=== PATIENT | female | born 1980 | race Caucasian/White ===

== ENCOUNTER 2017-01-24 07:41 | Inpatient (IN) | payer SELFPAY ==
[~2017-01-24] VITALS: Ht 165.1 cm; Wt 64.0 kg
[2017-01-24] VITALS (45 sets, daily range): BP systolic 61–132; BP diastolic 32–83; PULSE 57–93; RESP 16–18; TEMP 98.2–98.4; O2SAT 99
--- NOTE | 2017-01-24 08:30 | PD ---
HPI Chief Complaint: Related Problem Time Seen by Provider: 07:55 Travel History International Travel<30 days: No Contact w/Intl Traveler<30days: No Traveled to known affect area: No History of Present Illness HPI 36 y/o female at 15 weeks with last ultrasound 3 weeks ago at 12 weeks in the office with heart tones noted then. Kalpana Weaver is the mid-level that they work with. She does not know the physician in the office. She states her blood type is O+. She states her to prior pregnancies were healthy home births. She states that at 2 AM this morning she felt a gush of water and started having lower abdominal cramping and bleeding. She was sent to OB ED and they sent her here given she is 15 weeks . She denies any other concurrent complaints. PFSH Past Medical History Influenza Vaccination: No ?: LMP: 10/15/16 : 3 Para: 2 Social History Alcohol Use: No Tobacco Use: No Substance Use: No Allergies-Medications (Allergen,Severity, Reaction): Coded Allergies: No Known Allergies (Unverified , 01/24/17) Review of Systems Except as stated in HPI: all other systems reviewed are Neg Physical Exam Narrative GENERAL: Well-nourished, well-developed patient. SKIN: Warm and dry. HEAD: Normocephalic and atraumatic. EYES: No injection or drainage. ENT: No nasal drainage noted. NECK: Supple, trachea midline. CARDIOVASCULAR: Regular rate and rhythm RESPIRATORY: No increased effort. No accessory muscle use. GASTROINTESTINAL: Abdomen soft, non-tender, nondistended. EXTREMITIES: No edema. NEUROLOGICAL: Awake and alert. Motor and sensory grossly within normal limits. Normal speech. Data Data Last Documented VS Vital Signs Date Time Temp Pulse Resp B/P (MAP) Pulse Ox O2 Delivery O2 Flow Rate FiO2 01/24/17 07:55 72 18 01/24/17 07:48 98.4 132/79 (96) 99 Orders Orders Urinalysis - C+S If Indicated (01/24/17 08:21) Ed Discharge Order (01/24/17 08:27) MDM Medical Decision Making Medical Screen Exam Complete: Yes Emergency Medical Condition: Yes Medical Record Reviewed: Yes (pmh confirmed) Differential Diagnosis IUFD, miscarriage, uti.... Narrative Course Emergency Department Pelvic ultrasound was performed with patient consent. The curvilinear probe was used in the transverse and sagittal views within the suprapubic region revealing single intrauterine . heart rate was unable to be visualized after multiple minutes and confirmed with my colleague After bedside ultrasound performed discussed with OB hospitalist and he requests patient to go upstairs without any additional testing or exam, patient updated Physician Communication Physician Communication dr dunn states to send to OB ed at 827 am, will confirm with ultrasound and do additional testing upstairs Diagnosis Primary Impression: Intrauterine before 20 weeks of gestation Additional Impression: Vaginal bleeding before 22 weeks gestation Patient Instructions: General Instructions Additional Instructions: to OB ED Med/Other Pt SpecificInfo: No Change to Meds Disposition: 70 TRANSFER TO OTHER FACILITY (ob ed) Condition: Stable Emilee Watters MD Jan 24, 2017 08:30
[2017-01-24] MEDS ORDERED: LACTATED RINGER'S 1000 ML INJ 500 ML IV ONE (08:58)
[2017-01-24] MEDS ORDERED: MORPHINE SULFATE 10 MG/ML INJ IV PUSH PRN (09:00)
[2017-01-24] MEDS ORDERED: ONDANSETRON HCL 4 MG/2 ML VIAL IV PUSH PRN ×2 (09:00→22:30)
[2017-01-24] MEDS ORDERED: ACETAMINOPHEN 325 MG TAB PO PRN (09:00)
[2017-01-24] MEDS ORDERED: LORazepam 2 MG/ML VIAL IV PUSH PRN (09:00)
[2017-01-24] MEDS ORDERED: MORPHINE SULFATE 2 MG/ML INJ IV PUSH PRN (09:00)
[2017-01-24] MEDS ORDERED: SODIUM CHLORIDE 0.9% FLUSH 10 ML FLUSH IV FLUSH PRN (09:00)
[2017-01-24] MEDS ORDERED: DIPHENOXYLATE/ATROPINE 2.5 MG/0.025 MG TAB PO PRN (09:00)
--- NOTE | 2017-01-24 09:41 | HHI.HP ---
HPI Chief Complaint Patient complains of passage of watery discharge and blood at home Date Seen: Jan 24, 2017 Time Seen: 09:20 Travel History International Travel<30 Days: No Contact w/Intl Traveler<30Days: No Known Affected Area: No History of Present Illness HPI The patient is 36-year-old white female with an EDC of 07/17/17 which would make her 15 weeks and 1 day who goes to Kalpana Weaver for care. Patient states she was doing fine at about 2 AM when she started feeling of discomfort went to the bathroom and passed a lot of water per vagina and the patient went back to bed and noticed at about 6 AM she got up and went to the bathroom and noticed a lot of blood per vagina, also was cramping significantly at that time. She presented here to the emergency room and an ultrasound was done which shows intrauterine with no cardiac motion and the patient was then sent to OB Weeks Gestation: 15 Para: 2 : 3 History Obstetric History Obstetric History 2 vaginal deliveries at home Past Surgical History Narrative Surgical Patient has some type of wrist surgery when she was child Social History Alcohol Use: No Tobacco Use: No Substance Abuse: No Allergies-Medications (Allergen,Severity, Reaction): Coded Allergies: No Known Allergies (Unverified , 01/24/17) Review of Systems General / Constitutional: No: Fever, Weight Gain, Chills, Other Eyes: No: Diploplia, Blurred Vision, Visual changes, Pain, Photophobia HENT: No: Headaches, Vertigo, Lightheadedness Cardiovascular: No: Irregular Rhythm, Chest Pain or Discomfort, Palpitations, Tachycardia, Syncope, Varicosities, Edema, Cyanosis Respiratory: No: Cough, Short of Breath, Other Gastrointestinal: Abdominal Pain, No: Nausea, Vomiting, Diarrhea Genitourinary: Vaginal Bleeding, No: Decreased Urinary Output, Oliguria Musculoskeletal: No: Limited ROM, Weakness, Cramping, Edema, Pain Skin: No Rash, No Itching, No Dryness, No Lumps, No Change in Pigmentation, No Change in Nails, No Alopecia, No Lesions Neurologic: No: Weakness, Dizziness, Syncope, Focal Abnormalities, Coordination Problem, Headache, Slurred Speech, Seizures Psychiatric: No: Depression, Suicidal Ideations, Homicidal Ideation Endocrine: No: Heat Intolerance, Cold Intolerance, Polydipsia, Polyuria, Other Physical Exam Vital Signs Date Time Temp Pulse Resp B/P (MAP) Pulse Ox O2 Delivery O2 Flow Rate FiO2 01/24/17 07:55 72 18 01/24/17 07:48 98.4 84 18 132/79 (96) 99 Narrative GENERAL: Well-nourished, well-developed patient. SKIN: Warm and dry. HEAD: Normocephalic and atraumatic. EYES: No scleral icterus. No injection or drainage. ENT: No nasal drainage noted. Mucous membranes pink. Airway patent. NECK: Supple, trachea midline. No JVD. CARDIOVASCULAR: Regular rate and rhythm without murmurs, gallops, or rubs. RESPIRATORY: Breath sounds equal bilaterally. No accessory muscle use. BREASTS: Bilateral exam showed no masses , no retractions, no nipple discharge. ABDOMEN/GI: Abdomen soft, non-tender, bowel sounds present, no rebound, no guarding Gravid to [13-] weeks size Fundal Height: [13-] GENITOURINARY: External Genitalia: intact and normal in appearance BUS glands: [-] Cervix: [closed-] Dilatation: [-closed] Effacement: [-thick] Station: [-3] Presentation: [-breech] Membranes: ruptured] FHT's: 0 no CM EXTREMITIES: No cyanosis or edema. BACK: Nontender without obvious deformity. No CVA tenderness. NEUROLOGICAL: Awake and alert. Motor and sensory grossly within normal limits. Five out of 5 muscle strength in all muscle groups. Normal speech. Caprini VTE Risk Assessment Caprini VTE Risk Assessment: No/Low Risk (score <= 1) Caprini Risk Assessment Model Point Value = 1 Point Value = 2 Point Value = 3 Point Value = 5 Age 41-60 Minor surgery BMI > 25 kg/m2 Swollen legs Varicose veins or History of unexplained or recurrent spontaneous Oral contraceptives or hormone replacement Sepsis (< 1 month) Serious lung disease, including pneumonia (< 1 month) Abnormal pulmonary function Acute myocardial infarction Congestive heart failure (< 1 month) History of inflammatory bowel disease Medical patient at bed rest Age 61-74 Arthroscopic surgery Major open surgery (> 45 min) Laparoscopic surgery (> 45 min) Malignancy Confined to bed (> 72 hours) Immobilizing plaster cast Central venous access Age >= 75 History of VTE Family history of VTE Factor V Leiden Prothrombin [id number] Lupus anticoagulant Anticardiolipin antibodies Elevated serum homocysteine Heparin-induced thrombocytopenia Other congenital or acquired thrombophilia Stroke (< 1 month) Elective arthroplasty Hip, pelvis, or leg fracture Acute spinal cord injury (< 1 month) Prophylaxis Regimen Total Risk Factor Score Risk Level Prophylaxis Regimen 0-1 Low Early ambulation 2 Moderate Order ONE of the following: *Sequential Compression Device (SCD) *Heparin 5000 units SQ BID 3-4 Higher Order ONE of the following medications: *Heparin 5000 units SQ TID *Enoxaparin/Lovenox 40 mg SQ daily (WT < 150 kg, CrCl > 30 mL/min) *Enoxaparin/Lovenox 30 mg SQ daily (WT < 150 kg, CrCl > 10-29 mL/min) *Enoxaparin/Lovenox 30 mg SQ BID (WT < 150 kg, CrCl > 30 mL/min) AND/OR *Sequential Compression Device (SCD) 5 or more Highest Order ONE of the following medications: *Heparin 5000 units SQ TID (Preferred with Epidurals) *Enoxaparin/Lovenox 40 mg SQ daily (WT < 150 kg, CrCl > 30 mL/min) *Enoxaparin/Lovenox 30 mg SQ daily (WT < 150 kg, CrCl > 10-29 mL/min) *Enoxaparin/Lovenox 30 mg SQ BID (WT < 150 kg, CrCl > 30 mL/min) AND *Sequential Compression Device (SCD) Data Data Orders Orders Urinalysis - C+S If Indicated (01/24/17 08:21) Ed Discharge Order (01/24/17 08:27) Admit To Inpatient (01/24/17 ) Vital Signs (Adult) Q4H (01/24/17 08:58) Activity Oob Ad Tita (01/24/17 08:58) Diet Npo (01/24/17 Breakfast) Sodium Chloride 0.9% Flush (Ns Flush) (01/24/17 09:00) Sodium Chloride 0.9% Flush (Ns Flush) (01/24/17 09:00) Misoprostol (Cytotec) (01/24/17 09:00) Acetaminophen (Tylenol) (01/24/17 09:00) Morphine Inj (Morphine Inj) (01/24/17 09:00) Ondansetron Inj (Zofran Inj) (01/24/17 09:00) Diphenoxylate/Atropine Tab (Lomotil Tab) (01/24/17 09:00) Lorazepam Inj (Ativan Inj) (01/24/17 09:00) Complete Blood Count With Diff (01/24/17 08:58) Antibody Screen (01/24/17 08:58) Prothrombin Time / Inr (Pt) (01/24/17 08:58) Drug Screen, Random Urine (01/24/17 08:58) Lactated Ringer's 1000 Ml Inj (Lr 1000 M (01/24/17 08:58) Specimen To Be Collected PRN (01/24/17 08:58) Ob Poc Ultrasound (01/24/17 ) Morphine Inj (Morphine Inj) (01/24/17 09:00) Labs Bedside ultrasound done here on labor and delivery shows a single intrauterine in a breech presentation with crown-rump length of 6.3 and the fetus approximately 12-13 week size there is no cardiac motion detected on ultrasound adequate amniotic fluid around baby noted, also the posterior placenta can be seen grade 0 with an apparent abruption and the lower uterine segment or the internal os is an obvious area of distinct detachment of the placenta blood between that and the cervix and uterus this likely represents placental abruption resulting in an IUFD Assessment/Plan Assessment and Plan 36-year-old white female at 15 weeks gestation with vaginal bleeding and passage of fluid and blood, ultrasound confirms demise at 13 weeks size approximately, with apparent placental abruption on the posterior placenta as cause, and this may have happened 1-2 weeks ago and just began presenting today with the ruptured membranes and bleeding. Impression-- 15 week intrauterine with measured the fetus at 12-13 week size demise no cardiac motion an apparent posterior placental abruption -Plan--Will begin Cytotec per vagina to begin a uterine evacuation process, will check PT CBC fibrinogen T&S Willam Murguia II, MD Jan 24, 2017 09:41
[2017-01-24] MEDS: MISOPROSTOL 200 MCG TAB VAGINAL SCH ×4 (10:52→21:00)
[2017-01-24 11:00] LABS: AUTOMATED NEUTROPHIL # 4.5 TH/MM3 (1.8-7.7); BASOPHIL % 0.5 % (0.0-2.0); EOSINOPHIL % 0.5 % (0.0-4.0); HEMO FLAGS DIFF FINAL; LYMPH % 24.3 % (9.0-44.0); LYMPHOCYTE # 1.5 TH/MM3 (1.0-4.8); MEAN CORPUSCULAR HEMOGLOBIN 27.7 PG (27.0-34.0); MEAN CORPUSCULAR HGB CONC 32.2 % (32.0-36.0); NEUT % 70.7 % (16.0-70.0); PLATELET COUNT 280 TH/MM3 (150-450); RED BLOOD COUNT 4.76 MIL/MM3 (4.00-5.30); RED CELL DISTRIBUTION WIDTH 14.7 % (11.6-17.2); WHITE BLOOD COUNT 6.3 TH/MM3 (4.0-11.0)
[2017-01-24 11:02] LABS: PROTHROMBIN TIME - PATIENT 11.1 SEC (9.8-11.6)
[2017-01-24 11:07] LABS: BACTERIA, URINE RARE /hpf; BLOOD, URINE SMALL (NEG); COMMENT (UR) CULT NOT INDICATED; CULTURE IF INDICATED CULT NOT INDICATED; GLUCOSE,URINE NEG (NEG); KETONE, URINE NEG (NEG); MUCUS URINE FEW /lpf (OCC); NITRITE,URINE NEG (NEG); PH, URINE 6.5 (5.0-8.5); SQUAMOUS EPITHELIAL CELL URINE 1 /hpf (0-5); URINE COLOR COLORLESS (YELLW/STRAW)
[2017-01-24] MEDS: SODIUM CHLORIDE 0.9% FLUSH 10 ML FLUSH IV FLUSH SCH ×2 (14:58→19:48)
[2017-01-24] MEDS ORDERED: OXYTOCIN 10 UNIT/ML AMP ONE (20:28)
--- NOTE | 2017-01-24 20:49 | PD.OB.DELI ---
Weeks gestation: 15 Gest age assessed date: Jan 24, 2017 Gest age assessed time: 20:45 Pt started active labor?: Yes Medical induction of labor?: Yes Artificial rupture of membrane: No Vaginal Delivery: Normal Delayed cord clamping (45 sec): No Infant: Male Delivery date: Jan 24, 2017 Delivery time: 20:20 One Minute : 0 Five Minute : 0 Ten Minute : 0 Placenta: Spontaneous delivery Estimated blood loss: 1000 Additional Information Pt received her 3rd dose of 200mcg cytotec at 19:00. Just after 20:00, she ambulated to the bathroom and passed the fetus along with 1000cc of blood/clot. She experienced a vasovagal episode but was with the and RN. She was escorted to bed where vitals are stable. Bleeding is appropriate. Examination reveals an extremely anteverted uterus. Cvx is still 3cm dilated. Placenta remains in situ. Approximately 150cc clot expelled. 600mcg of cytotec placed rectally to aid in placental expulsion. Pt and counseled on possible need for D&C if heavy bleeding ensues or if placenta is not delivered within 1-2 hours. Will monitor closely. NPO at this time. Santiago Guo MD Jan 24, 2017 20:49
[2017-01-24] MEDS ORDERED: MISOPROSTOL 200 MCG TAB RECTAL ONE (21:00)
[2017-01-24] MEDS ORDERED: ePHEDrine/NS 25 MG/5 ML SYR ONE (21:04)
[2017-01-24] MEDS ORDERED: DOXYCYCLINE 100 MG/NS 100 ML IV ONE ×2 (21:45)
[2017-01-24 21:59] LABS: AUTOMATED NEUTROPHIL # 4.7 TH/MM3 (1.8-7.7); BASOPHIL % 0.3 % (0.0-2.0); EOSINOPHIL # 0.1 TH/MM3 (0-0.4); EOSINOPHIL % 0.7 % (0.0-4.0); HEMATOCRIT 28.4 % (35.0-46.0); HEMO FLAGS DIFF FINAL; LYMPH % 40.1 % (9.0-44.0); LYMPHOCYTE # 3.5 TH/MM3 (1.0-4.8); MEAN CORPUSCULAR HEMOGLOBIN 27.9 PG (27.0-34.0); MEAN CORPUSCULAR HGB CONC 31.7 % (32.0-36.0); MONO % 5.4 % (0.0-8.0); NEUT % 53.5 % (16.0-70.0); PLATELET COUNT 232 TH/MM3 (150-450); RED BLOOD COUNT 3.22 MIL/MM3 (4.00-5.30); RED CELL DISTRIBUTION WIDTH 14.2 % (11.6-17.2); WHITE BLOOD COUNT 8.7 TH/MM3 (4.0-11.0)
[2017-01-24 22:19] LABS: APTT (PATIENT) 27.5 SEC (24.3-30.1); INTERNATIONAL NORMALIZED RATIO 1.2 RATIO; PROTHROMBIN TIME - PATIENT 12.8 SEC (9.8-11.6)
--- NOTE | 2017-01-24 22:40 | PD.OP ---
Operative Report Date of Surgery: Jan 24, 2017 Preoperative Diagnosis: (1) Retained placenta with delivery, with complication (2) Intrauterine before 20 weeks of gestation same Postoperative Diagnosis: Procedure: suction D&C Anesthesia: spinal Surgeon: Santiago Guo Warehouse Shipping Supervisor(s): n/a Operation and Findings: Pt delivered non-viable male fetus with 1000cc EBL. Cytotec rectally was placed to aid in placental delivery. She lost an additional 1350cc estimated and became hypotensive. IV pressors were given and pt was consented for emergent D&C. R/B/A were discussed including bleeding, infection, discomfort, injury to surrounding organs/structures, and need for transfusion (risks 1:1M HIV and 4:1M hepatitis). She voiced understanding and gave verbal consent. During prep, pt lost an estimated additional 200cc. Total EBL prior to procedure: 2550cc STAT Hgb: 9.0 T&C x2 units performed PROCEDURE Anesthesia: spinal Antibiotics: 100mg IV doxycycline DVT prophylaxis: SCDs were in place and active throughout the entire procedure EBL: 750cc (intraoperative only) IVF: 1500cc UOP: 400cc Drain(s): none Specimen(s): placenta Disposition: to PACU in stable condition Technique: Spinal anesthesia was performed and pt was then placed in dorsal lithotomy position in candycane stirrups. A timeout was performed and agreed upon by the team. A vaginal prep was performed using betadine. The pt was then draped in the normal sterile fashion. An I&O catheterization was performed to ensure complete bladder emptying. A speculum was placed in the vagina and approximately 500cc of clot and blood were evacuated. Part of the placenta was seen and removed with ring forceps. A ring forcep was then placed onto the anterior lip of the cervix. A 12mm suction curette was then advanced to the uterine fundus. Suction was applied with the vacuum aspirator. Three passes were made to ensure complete evacuation of the uterus. There was no additional bleeding seen at the os. All instruments were removed from the vagina and the uterus massaged and was firm. The patient tolerated the procedure well. TOTAL EBL PRE/INTRAOP: 3300cc. CBC at midnight CBC at 0800 No NSAIDs. Santiago Guo MD Jan 24, 2017 22:40
[2017-01-24 23:56] LABS: AUTOMATED NEUTROPHIL # 8.1 TH/MM3 (1.8-7.7); BASOPHIL % 0.2 % (0.0-2.0); EOSINOPHIL % 0.2 % (0.0-4.0); LYMPH % 12.5 % (9.0-44.0); LYMPHOCYTE # 1.2 TH/MM3 (1.0-4.8); MEAN CELL VOLUME 85.4 FL (80.0-100.0); MEAN CORPUSCULAR HEMOGLOBIN 28.2 PG (27.0-34.0); MONO % 2.2 % (0.0-8.0); NEUT % 84.9 % (16.0-70.0); PLATELET COUNT 198 TH/MM3 (150-450); RED BLOOD COUNT 2.25 MIL/MM3 (4.00-5.30); WHITE BLOOD COUNT 9.6 TH/MM3 (4.0-11.0)
[2017-01-25] VITALS (52 sets, daily range): BP systolic 85–126; BP diastolic 42–107; PULSE 76–114; RESP 16–20; TEMP 97.8–99.2
[2017-01-25 00:03] LABS: HEMO FLAGS DIFF FINAL
[2017-01-25 00:07] LABS: HEMATOCRIT 19.2 % (35.0-46.0)
[2017-01-25] MEDS: MISOPROSTOL 200 MCG TAB VAGINAL SCH ×2 (01:00→04:42)
--- NOTE | 2017-01-25 01:14 | HHI.PR ---
MEAT DEPARTMENT MANAGER Note Note PLAN OF CARE NOTE Midnight Hgb returned as 6.3. Pt was counseled on the results and recommendations for transfusion. Explained R/B/A. Discussed that pts who start with a Hgb of 9-10 and drop to 6 are less likely to be symptomatic. However, she dropped from 13.2 to 6.3 (likely not yet nadired) which is more than half her blood volume. We discussed PO iron and IV iron as options which are termite exterminator helper solutions but I reviewed with her that I was concerned in the short term her blood was being shunted to vital organs and she would have profound fatigue and symptoms when ambulatory. We also discussed increased risk of heart strain/WV with significant and acute/uncompensated blood loss. Pt accepts blood transfusion. We discussed the risk of allergic reaction, TRALI , and HIV/HCV again in detail with rates of each. She and her asked questions and agreed with the plan of care. Plan: transfuse 2u pRBCs and recheck CBC at 8am; premedicate with tylenol and benadryl Santiago Guo MD Jan 25, 2017 01:13
[2017-01-25] MEDS ORDERED: SODIUM CHLOR 0.9% 250 ML INJ 250 ML IV ONE (01:15)
[2017-01-25] MEDS ORDERED: diphenhydrAMINE HCL 25 MG CAP PO PRN (01:15)
[2017-01-25] MEDS ORDERED: ACETAMINOPHEN 325 MG TAB PO PRN (01:15)
[2017-01-25] MEDS ORDERED: LACTATED RINGER'S 1000 ML INJ 1,000 ML IV SCH (03:26)
--- NOTE | 2017-01-25 10:15 | PD.OB.ANTE ---
Subjective Interval History Ms Ybarra is feeling better this morning after loss of approx 3300cc blood s/p transfusion 2u PRBCs. Her color looks better but she does have a VANEGAS. Tolerating PO, ambulating without dizziness, had a BM, and pain is controlled. Denies CP, SOB, N/V/D, leg pain. Antepartum ROS: Reports: Other (headache) Objective Vital Signs Vital Signs Date Time Temp Pulse Resp B/P (MAP) Pulse Ox O2 Delivery O2 Flow Rate FiO2 01/25/17 08:12 98.3 89 16 109/64 01/25/17 07:58 98.3 01/25/17 07:57 16 01/25/17 07:45 95 125/77 (93) 01/25/17 07:30 88 105/69 (81) 01/25/17 07:15 87 106/64 (78) 01/25/17 07:00 81 105/63 (77) 01/25/17 06:45 80 104/61 (75) 01/25/17 06:30 87 100/58 (72) 01/25/17 06:15 81 97/60 (72) 01/25/17 06:00 78 96/60 (72) 01/25/17 05:48 89 95/59 (71) 01/25/17 05:45 82 01/25/17 05:30 94 92/55 (67) 01/25/17 05:21 18 01/25/17 05:15 84 105/60 (75) 01/25/17 05:09 76 104/61 (75) 01/25/17 05:00 107 126/107 (113) 01/25/17 04:45 97.8 18 01/25/17 04:45 81 103/64 (77) 01/25/17 04:45 97.9 81 18 103/ 01/25/17 04:32 95 104/60 (75) 01/25/17 04:30 16 01/25/17 04:30 98.8 01/25/17 04:30 86 85/47 (60) 01/25/17 04:30 98.8 86 18 104/60 01/25/17 04:22 89 91/48 (62) 01/25/17 04:15 83 90/42 (58) 01/25/17 04:00 98.8 89 18 101/55 01/25/17 04:00 89 101/55 (70) 01/25/17 03:59 88 101/56 (71) 01/25/17 03:45 86 104/58 (73) 01/25/17 03:30 16 01/25/17 03:30 90 102/60 (74) 01/25/17 03:23 95 113/62 (79) 01/25/17 03:00 86 89/47 (61) 01/25/17 02:45 88 101/60 (74) 01/25/17 02:30 92 99/61 (74) 01/25/17 02:15 83 98/56 (70) 01/25/17 02:00 89 99/57 (71) 01/25/17 01:48 102 99/58 (72) 01/25/17 01:48 99.2 18 01/25/17 01:48 99.2 102 18 99/58 01/25/17 01:39 98.8 01/25/17 01:38 20 01/25/17 01:33 98.8 92 20 93/47 01/25/17 01:30 92 93/47 (62) 01/25/17 01:00 102 90/46 (61) 01/25/17 00:56 99 100/61 (74) 01/25/17 00:50 102 103/62 (76) 01/25/17 00:45 105 106/63 (77) 01/25/17 00:40 104 99/67 (78) 01/25/17 00:40 113 01/25/17 00:36 108 99/56 (70) 01/25/17 00:31 114 105/58 (74) 01/25/17 00:30 97 01/25/17 00:25 93 102/58 (73) 01/25/17 00:25 98 01/25/17 00:20 101 115/55 (75) 01/25/17 00:20 95 01/25/17 00:15 95 01/25/17 00:15 93 102/56 (71) 01/25/17 00:10 95 01/25/17 00:10 97 102/55 (71) 01/25/17 00:05 88 98/53 (68) 01/25/17 00:05 87 01/25/17 00:00 90 101/56 (71) 01/25/17 00:00 16 01/25/17 00:00 86 01/24/17 23:55 89 01/24/17 23:55 93 96/54 (68) 01/24/17 23:50 87 94/52 (66) 01/24/17 23:50 88 01/24/17 23:46 87 103/51 (68) 01/24/17 23:45 16 01/24/17 23:45 92 01/24/17 23:40 82 96/56 (69) 01/24/17 23:40 86 01/24/17 23:35 80 93/53 (66) 01/24/17 23:35 80 01/24/17 23:30 90 01/24/17 23:30 86 18 89/52 (64) 01/24/17 23:26 86 71/43 (52) 01/24/17 23:25 81 01/24/17 23:24 82 66/37 (47) 01/24/17 23:23 79 61/35 (44) 01/24/17 23:20 86 78/35 (49) 01/24/17 23:20 83 01/24/17 23:15 83 01/24/17 23:15 88 90/45 (60) 01/24/17 23:13 16 01/24/17 23:10 82 92/50 (64) 01/24/17 23:10 85 01/24/17 23:05 81 100/57 (71) 01/24/17 23:05 83 01/24/17 23:00 18 01/24/17 23:00 77 01/24/17 23:00 81 101/51 (68) 01/24/17 22:55 80 93/51 (65) 01/24/17 22:55 81 01/24/17 22:50 78 01/24/17 22:50 78 106/49 (68) 01/24/17 22:45 86 01/24/17 22:45 83 96/59 (71) 01/24/17 22:40 81 01/24/17 22:40 75 105/52 (69) 01/24/17 22:36 16 01/24/17 22:36 72 105/49 (67) 01/24/17 22:35 75 01/24/17 22:34 71 97/52 (67) 01/24/17 21:21 89 123/71 (88) 01/24/17 21:18 74 117/62 (80) 01/24/17 21:15 69 124/56 (78) 01/24/17 21:12 71 01/24/17 21:12 117/56 (76) 01/24/17 21:09 80 01/24/17 21:09 124/61 (82) 01/24/17 21:06 76 01/24/17 21:06 100/57 (71) 01/24/17 21:04 107/61 (76) 01/24/17 21:04 57 01/24/17 21:02 97/53 (68) 01/24/17 21:02 59 01/24/17 21:00 72 01/24/17 21:00 82/45 (57) 01/24/17 20:57 60 01/24/17 20:57 63/32 (42) 01/24/17 20:53 100/62 (75) 01/24/17 20:53 81 01/24/17 20:35 65 115/75 (88) 01/24/17 20:29 71 113/70 (84) 01/24/17 18:59 98.4 01/24/17 18:53 60 127/69 (88) 01/24/17 15:03 98.2 01/24/17 14:58 70 123/83 (96) 01/24/17 11:10 18 01/24/17 11:00 64 124/73 (90) 01/24/17 10:58 98.4 Intake & Output 01/25/17 01/25/17 07:00 19:00 Intake Total 335 ml 450 ml Balance 335 ml 450 ml Packed Cells 335 ml 400 ml Blood Product IV Normal Saline Flush 50 ml Lab & Micro Results Test 01/24/17 10:22 01/24/17 21:15 01/24/17 23:43 White Blood Count 6.3 TH/MM3 8.7 TH/MM3 9.6 TH/MM3 Red Blood Count 4.76 MIL/MM3 3.22 MIL/MM3 2.25 MIL/MM3 Hemoglobin 13.2 GM/DL 9.0 GM/DL 6.3 GM/DL Hematocrit 41.0 % 28.4 % 19.2 % Mean Corpuscular Volume 86.0 FL 88.0 FL 85.4 FL Mean Corpuscular Hemoglobin 27.7 PG 27.9 PG 28.2 PG Mean Corpuscular Hemoglobin Concent 32.2 % 31.7 % 33.0 % Red Cell Distribution Width 14.7 % 14.2 % 14.0 % Platelet Count 280 TH/MM3 232 TH/MM3 198 TH/MM3 Mean Platelet Volume 8.5 FL 7.7 FL 7.2 FL Neutrophils (%) (Auto) 70.7 % 53.5 % 84.9 % Lymphocytes (%) (Auto) 24.3 % 40.1 % 12.5 % Monocytes (%) (Auto) 4.0 % 5.4 % 2.2 % Eosinophils (%) (Auto) 0.5 % 0.7 % 0.2 % Basophils (%) (Auto) 0.5 % 0.3 % 0.2 % Neutrophils # (Auto) 4.5 TH/MM3 4.7 TH/MM3 8.1 TH/MM3 Lymphocytes # (Auto) 1.5 TH/MM3 3.5 TH/MM3 1.2 TH/MM3 Monocytes # (Auto) 0.3 TH/MM3 0.5 TH/MM3 0.2 TH/MM3 Eosinophils # (Auto) 0.0 TH/MM3 0.1 TH/MM3 0.0 TH/MM3 Basophils # (Auto) 0.0 TH/MM3 0.0 TH/MM3 0.0 TH/MM3 CBC Comment DIFF FINAL DIFF FINAL DIFF FINAL Differential Comment Prothrombin Time 11.1 SEC 12.8 SEC Prothromb Time International Ratio 1.0 RATIO 1.2 RATIO Fibrinogen 253 mg/dL Activated Partial Thromboplast Time 27.5 SEC Physical Exam GENERAL: Well-nourished, well-developed patient sitting in a chair eating breakfast. CARDIOVASCULAR: Regular rate and rhythm without murmurs, gallops, or rubs. RESPIRATORY: Breath sounds equal bilaterally. No accessory muscle use. ABDOMEN/GI: Abdomen soft, non-tender. GENITOURINARY: External Genitalia: deferred EXTREMITIES: No cyanosis or edema, non-tender, without signs of DVT. Assessment and Plan Assessment and Plan 36-year-old white female at 15 weeks gestation with vaginal bleeding and passage of fluid and blood found with IUFD. Now s/p 3rd dose of cytotec and pt has delivered the fetus with EBL 3300cc blood and s/p transfusion 2u PRBCs. Pt stable, following H/H, ambulating w/o dizziness, tolerating PO, pain controlled , afebrile, VSS. Plan: -Discharge today if morning H/H stable -Encouraged hydration to replace volume from large blood loss -FeSO4 325mg BID -Colace 1 tablet daily for constipation from Fe supplement -Vaginal rest for 6 weeks -Follow up with MUD CAR WORKER and/or PCP in 6 weeks -Get CBC, BMP at 6 week visit to ensure Hgb is normalizing -Tylenol/Ibuprofen PRN for pain -Return to ED if bleeding >normal menses amount, Fever >100.4, increasing abdominal pain Mikal Finnegan MD R1 Jan 25, 2017 10:15
[2017-01-25] MEDS ORDERED: FERR325T18 PO (10:43)
[2017-01-25] MEDS ORDERED: COLA100C5 PO (10:43)
--- NOTE | 2017-01-25 10:51 | HHI.DCPOC ---
Discharge Care Plan Report Symptoms to Your Doctor -Temperature above 100.5 degrees -Unusual pain or calf pain -Increased vaginal bleeding -Painful or difficulty urinating -Feelings of extreme sadness or anxiety -Dizziness or loss of consciousness, persistent headache Goals to Promote Your Health * To prevent worsening of your condition and complications, please take your iron supplements as prescribed and take the stool softener to encourage normal stooling (the iron often causes constipation). Please consider taking miralax if the stool softeners are not getting the job done. * To maintain your health at the optimal level, please ensure vaginal rest-- nothing in your vagina for 6 weeks to allow for healing. Also, please allow 2-3 menstrual cycles to pass before considering conception again to allow for adequate healing of your uterus. * Please follow up with your [facility]ITIONER and/or primary care doctor in 6 weeks for a check up, and we strongly recommend getting your blood drawn for labs: complete blood count and basic metabolic profile. Doing so will ensure we know that your anemia from blood loss is resolving. *Please take Tylenol for fever/pain and/or Ibuprofen for pain. Directions to Meet Your Goals Take your medications as prescribed Follow your dietary instruction (a regular diet is encouraged. Please drink plenty of fluids to allow your body to replace the volume lost) Follow activity as directed (weight bearing as tolerated with no strenuous exercise for several weeks until we know your anemia is resolving/resolved) Ensure plenty of rest for recovery Drink fluids for hydration Keep your appointments as scheduled Take your immunizations and boosters as scheduled If your symptoms worsen call your PCP, if no PCP go to Urgent Care Center or Emergency Room Smoking is Dangerous to Your Health. Avoid second hand smoke Call the 24-hour crisis hotline for domestic abuse at Mikal Finnegan MD R1 Jan 25, 2017 10:51
[2017-01-25] MEDS ORDERED: prenatal vitamin PO (10:56)
[2017-01-25 11:01] LABS: HEMATOCRIT 27.2 % (35.0-46.0); MEAN CELL VOLUME 86.8 FL (80.0-100.0); MEAN CORPUSCULAR HEMOGLOBIN 30.5 PG (27.0-34.0); MEAN CORPUSCULAR HGB CONC 35.2 % (32.0-36.0); PLATELET COUNT 194 TH/MM3 (150-450); RED BLOOD COUNT 3.13 MIL/MM3 (4.00-5.30); RED CELL DISTRIBUTION WIDTH 13.8 % (11.6-17.2); REVIEW FLAG FINAL
[2017-01-25] MEDS ORDERED: CODCAP4 PO (11:11)
== END 2017-01-25 12:47 | disposition home or self-care (01) | DRG 767 ==
LOC: HOBED 07:41 → H2EA 08:47
PROVIDERS: ADMIT Obstetrics & Gynecology Maternal & Fetal Medicine; ATTEND Obstetrics & Gynecology Maternal & Fetal Medicine
PROC: 10E0XZZ Delivery of Products of Conception, External Approach (ICD-10-PCS; principal; 2017-01-24)
PROC: 10D17ZZ Extraction of Products of Conception, Retained, Via Natural or Artificial Opening (ICD-10-PCS; 2017-01-24)
PROC: 30233N1 Transfusion of Nonautologous Red Blood Cells into Peripheral Vein, Percutaneous Approach (ICD-10-PCS; 2017-01-24)
DX: O45.92 Premature separation of placenta, unspecified, second trimester (principal); O36.4XX0 Maternal care for intrauterine death, not applicable or unspecified; Z37.1 Single stillbirth; Z3A.15 15 weeks gestation of pregnancy; R55 Syncope and collapse; N85.4 Malposition of uterus; O90.81 Anemia of the puerperium; D64.89 Other specified anemias
CPT/HCPCS: 36430; 80307; 81001; 85025; 85027; 85384; 85610; 85730; 86850; 86900; 86901; 86920; 88305; J2590; J7050; J7120; P9016